=== PATIENT | female | born 1995 | race Caucasian/White ===

== ENCOUNTER 2017-12-19 20:27 | Emergency (ER) | payer MEDICAID, SELFPAY ==
[2017-12-19 20:28] VITALS: BP 128/78; PULSE 77; RESP 15; TEMP 36.5; O2SAT 98; BMI 20.9
--- NOTE | 2017-12-19 21:12 | ED.VIS.GEN ---
History of Present Illness Chief Complaint: Rash Informant: Patient Onset: Yesterday Context: Gradual Onset Timing: Continuous Quality: itchy Location: arms, abd Current Severity: Moderate Maximum Severity: Moderate Worsened by: n/a Relieved by: n/a Associated Symptoms: none Narrative: Patient states she was exposed to poison michelle and is very allergic to it, she washed herself off right afterwards, but started breaking out anyway. She states she was exposed to a yesterday and started breaking out yesterday. Prior similar symptoms: Yes Past Medical History - Allergies and Home Meds Allergies/Adverse Reactions: Allergies amoxicillin trihydrate [From Augmentin] Allergy (Verified 12/19/17 20:28) Hives Penicillins Allergy (Verified 12/19/17 20:28) Rash potassium clavulanate [From Augmentin] Allergy (Verified 12/19/17 20:28) Hives Primary Care Physician: Doctor,Your [STAFF PHYSICIAN] - As Needed Past Medical History: None Smoking Status: Never smoker Review of Systems General: Denies: Chills, Fever Musculoskeletal: Denies: Extremity Pain Skin: Reports: Rash. Denies: Abscess Physical Exam Vital Signs/Narrative: Vital Signs Temp Pulse Resp BP Pulse Ox 12/19/17 20:28 97.7 F L 77 15 128/78 H 98 Inital Vital Signs reviewed: Yes General: Well nourished, Well developed Head: Normocephalic, Atraumatic Extremities: Nontender, No edema Skin: Rash - Vesicular rash with calamine lotion on it, in linear distribution on her distal forearms and a small amount on her abdomen. Nontender. No edema. Neurological: Alert, Oriented x3, Cranial nerves II-XII grossly intact, Normal Strength, Normal Sensation Psychological: Normal affect Diagnostic/Tx/Re-eval - Medical Decision Making Consistent with poison michelle, however typically with a type IV hypersensitivity reaction people do not break out the same day that they were exposed. Therefore I question the possibility of this being a simple contact dermatitis from a different plant. The patient states that I am absolutely incorrect. I told her that regardless, topical steroids would be reasonable given its very limited distribution but she is very demanding that she is going to need systemic steroids. She understands the potential risks and side effects, and is okay with that, so she was given a prescription for a prednisone taper. ED Disposition - Plan for ED Patient: Disposition: Home or Assisted Living Chief Complaint: Rash Diagnosis: Rhus dermatitis Instructions: ED Dermatitis Poison Michelle Prescriptions: Prednisone 10 mg PO DAILY #63 tab Referrals: Doctor,Your [STAFF PHYSICIAN] - As Needed
[2017-12-19 21:19] VITALS: RESP 16
--- NOTE | 2017-12-19 21:19 | ED.RN ---
REVIEWED D/C INSTRUCTIONS, FOLLOW UP CARE, PRESCRIPTION, AND S/S THAT WOULD WARRANT A RETURN TO THE ED WITH PT. PT VERBALIZED AN UNDERSTANDING AND DENIES FURTHER QUESTIONS FOR THIS RN. PT SKIN P/W/D, RESP EVEN AND UNLABORED, PT A&O X 3, NO DISTRESS NOTED. PT AMBULATED OUT OF ED, GAIT STEADY.
== END 2017-12-19 21:21 | disposition home or self-care (01) ==
LOC: ED 21:16
PROVIDERS: Emergency Provider Emergency Medicine
DX: L23.7 Allergic contact dermatitis due to plants, except food (principal)
CPT/HCPCS: 99282

== ENCOUNTER 2018-05-19 17:25 | Emergency (ER) | payer MEDICAID, SELFPAY ==
[2018-05-19 17:26] VITALS: BP 95/68; PULSE 101; PULSE 102; RESP 17; RESP 18; TEMP 36.8; O2SAT 100; O2SAT 99; BMI 20.9
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
[2018-05-19] MEDS: 0.9% Normal Saline 1,000 ML 1000 ML IV (18:21)
[2018-05-19 18:58] VITALS: BP 115/62; PULSE 101; RESP 17; O2SAT 96
[2018-05-19 19:00] VITALS: BP 107/64; PULSE 99; RESP 14; O2SAT 94
[2018-05-19] MEDS: Ondansetron 4 MG/2 ML Vial IV (19:27)
[2018-05-19 20:05] VITALS: BP 112/71; PULSE 86; RESP 16; O2SAT 100
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
[2018-05-19 21:29] VITALS: BP 111/73; PULSE 87; RESP 16; O2SAT 99
== END 2018-05-19 21:30 | disposition home or self-care (01) ==
PROVIDERS: Emergency Provider Emergency Medicine
DX: S06.0X1A Concussion with loss of consciousness of 30 minutes or less, initial encounter (principal); S16.1XXA Strain of muscle, fascia and tendon at neck level, initial encounter; Y04.2XXA Assault by strike against or bumped into by another person, initial encounter; Y93.9 Activity, unspecified; Y92.89 Other specified places as the place of occurrence of the external cause; Y99.9 Unspecified external cause status
CPT/HCPCS: 70450; 72125; 96361; 96374; 99283; J7030; A4216; J2405

== ENCOUNTER 2018-06-14 14:35 | Emergency (ER) | payer MEDICAID, SELFPAY ==
[2018-06-14 14:36] VITALS: BP 123/67; PULSE 72; RESP 16; TEMP 36.3; O2SAT 98; BMI 21.6
--- NOTE | 2018-06-14 14:57 | ED.DCSUM_ITS ---
- ER Visit Summary Date of Service: 06/14/18 Chief Complaint: Facial redness History of Present Illness: The patient is a 23 F with facial redness after using a new makeup 3 days ago. No shortness of breath cough throat swelling or diffuse rash, her rash is on the face where she used makeup. Physical Examination: Otherwise normal exam there is slight erythema and irritation over the left face slightly on the right 2. Normal soft palate clear lungs bilaterally. Emergency Department Course and Treatment: This is likely a local irritation, I do not recommend any steroids at this time, I told the patient to use oil free moisturizers, otherwise this will heal on its own. There are no signs of superinfection at this time. Discharge stable condition Impression: [Facial irritation secondary to makeup] This note was generated with [employer] dictation software. It may contain incorrect words, spelling, and punctuation that were not noted in review of the chart prior to signing ED Disposition - Plan for ED Patient: Disposition: Home or Assisted Living Referrals: Care Physician,No Primary [Primary Care Provider] - 5-7 Days Additional Instructions: Use water-based moisturizer for the face, this should resolve on its own.
== END 2018-06-14 15:17 | disposition home or self-care (01) ==
LOC: ED 15:07
PROVIDERS: Emergency Provider Emergency Medicine
DX: L53.9 Erythematous condition, unspecified (principal)
CPT/HCPCS: 99282

== ENCOUNTER 2018-06-15 12:45 | Emergency (ER) | payer MEDICAID, SELFPAY ==
[2018-06-14 14:36] VITALS: BMI 21.6
[2018-06-15 12:46] VITALS: BP 115/71; PULSE 80; RESP 17; TEMP 36.8; O2SAT 98; BMI 21.6
--- NOTE | 2018-06-15 13:19 | ED.VISSUMM ---
- ER Visit Summary Date of Service: 06/15/18 Chief Complaint: Facial swelling History of Present Illness: The patient is a 23 F with facial swelling for the past few days after using a cup. She has no difficulty swallowing no change in her voice or difficulty breathing Physical Examination: She has diffuse facial swelling slightly worse than yesterday, she has a normal oropharynx normal soft palate no oropharyngeal edema. No lip swelling. Emergency Department Course and Treatment: Patient will be started on steroids, Solu-Medrol IV in the ED and prednisone for home. Disposition: Discharge stable condition Impression: Allergic dermatitis This note was generated with [employer] dictation software. It may contain incorrect words, spelling, and punctuation that were not noted in review of the chart prior to signing ED Disposition - Plan for ED Patient: Disposition: Home or Assisted Living Prescriptions: Prednisone 60 mg PO DAILY #15 tab Referrals: Care Physician,No Primary [Primary Care Provider] - 3-5 Days
[2018-06-15] MEDS: MethylPREDNISolone 125 MG/2 ML Vial IV (13:36)
[2018-06-15 13:50] VITALS: RESP 18
== END 2018-06-15 14:01 | disposition home or self-care (01) ==
PROVIDERS: Emergency Provider Emergency Medicine
DX: L30.9 Dermatitis, unspecified (principal)
CPT/HCPCS: 96374; 99282; A4216

== ENCOUNTER 2018-10-21 13:12 | Emergency (ER) | payer MEDICAID, SELFPAY ==
[2018-10-21 13:13] VITALS: BP 137/83; PULSE 69; RESP 18; TEMP 36.2; O2SAT 100; BMI 21.6
[2018-10-21 14:03] LABS: Color, Urine Yellow (Yellow); Glucose, Dipstick Normal (Normal); Ketone-Dipstick Negative (Negative); Leukocyte Esterase-Dipstick 25 /ul (Negative); Mucous, Urine 0 SEEN /hpf (<or=2+); Nitrite-Dipstick Negative (Negative); Occult Blood-Urine 10 /ul (Negative); Protein-Dipstick Negative (Negative); Red Blood Cells-Urine 0 SEEN /hpf (0-5); Urine Bilirubin Dipstick Negative (Negative); Urine Clarity Sl. Cloudy (Clear); Urine Urobilinogen Normal (Normal)
[2018-10-21 14:10] LABS: Bacteria RARE /hpf (None Seen); Squamous Epithelial Cells - UA 0-5 SEEN /hpf (5-10); White Blood Cells 0-5 SEEN /hpf (0-5)
--- NOTE | 2018-10-21 15:10 | ED.DCSUM_ITS ---
History of Present Illness Chief Complaint: Female C/O Informant: Patient, Family Onset: Yesterday Context: Sudden Onset Quality: Suprapubic pressure, frequency and discomfort Location: Current Severity: - - No symptoms unless she urinates Maximum Severity: Moderate Worsened by: Urination Relieved by: Nothing Associated Symptoms: No constitution or generalized symptoms Narrative: Patient is a 23-year-old female who presents with suprapubic disc comfort/pressure discomfort with urination urgency and frequency. She is not sexually active. She is never been . Last menses 2 weeks ago. She is never had a UTI. She denies vaginal bleeding or discharge. She believes her cervix is protruding. She will not allow me to perform a pelvic exam since I am a male physician. There are no female physicians on duty. Prior similar symptoms: No Recent Illness/Hospitalization: No - Past Medical History (1) No significant past medical history Status: Acute Past Medical History - Allergies and Home Meds Allergies/Adverse Reactions: Allergies amoxicillin trihydrate [From Augmentin] Allergy (Verified 10/21/18 13:15) Hives Penicillins Allergy (Verified 10/21/18 13:15) Rash potassium clavulanate [From Augmentin] Allergy (Verified 10/21/18 13:15) Hives Primary Care Physician: Care Physician,No Primary [Primary Care Provider] - Prior records reviewed: Yes Surgical History: no surgical history Lives: With Family Smoking Status: Never smoker Alcohol: None Review of Systems General: Denies: Chills, Fever, Sweats Respiratory: Denies: Dyspnea, Cough, Dyspnea on exertion Gastrointestinal: Reports: Abdominal pain. Denies: Nausea, Vomiting, Diarrhea, Melena, Hematochezia Genitourinary: Reports: Dysuria, Frequency. Denies: Hematuria Musculoskeletal: Denies: Myalgias, Arthralgias, Neck pain, Back pain, Swelling, Extremity Pain Skin: Denies: Rash, Wounds Neurological: Denies: Headache, Weakness, Numbness Physical Exam Vital Signs/Narrative: Vital Signs Temp Pulse Resp BP Pulse Ox 10/21/18 13:13 97.1 F L 69 18 137/83 H 100 Inital Vital Signs reviewed: Yes General: Well nourished, Well developed, No Acute Distress Head: Normocephalic, Atraumatic Eyes: Perrl, EOMI. Negative for: Pale conjunctiva, Scleral icterus ENT: Moist mucous membranes, No rhinorrhea, TM's clear Neck: Negative for: Supple, Nontender, No lymphadenopathy, No JVD, - Cardiovascular: Regular rate, Regular rhythm, No murmurs, Normal S1, Normal S2 Abdomen: Soft, Nondistended, Normal bowel sounds, No masses, Tender. Negative for: Nontender Back: Nontender, Normal Inspection. Negative for: CVA tenderness Skin: Normal color, No rash Neurological: Alert, Oriented x3, Cranial nerves II-XII grossly intact, Normal Strength, Normal Sensation Psychological: Normal affect Diagnostic/Tx/Re-eval Laboratory Results 10/21/18 13:55 Urine Color Yellow Urine Clarity Sl. Cloudy Urine pH 6.0 Ur Specific [place] 1.010 Urine Protein Negative Urine Glucose (UA) Normal Urine Ketones Negative Urine Occult Blood 10 H Urine Nitrite Negative Urine Bilirubin Negative Urine Urobilinogen Normal Ur Leukocyte Esterase 25 H Urine RBC 0 SEEN Urine WBC 0-5 SEEN Ur Squamous Epith Cells 0-5 SEEN Urine Bacteria RARE Urine Mucus 0 SEEN - Medical Decision Making Frequency and positive blood leukoesterase and bacteria will treat for UTI. No clinical evidence to suggest appendicitis, pyelonephritis or other cause. Patient was informed that her cervix is not protruding since she is not sexually active and never been . ED Disposition - Plan for ED Patient: Disposition: Home or Assisted Living Diagnosis: Acute cystitis Instructions: ED UTI Cystitis Female Prescriptions: Nitrofurantoin Macrocrystals [Macrobid] 100 mg PO Q12 #10 capsule Phenazopyridine HCl [Pyridium] 200 mg PO TID #10 tablet Referrals: Care Physician,No Primary [Primary Care Provider] - Additional Instructions: Your prescription was electronically transmitted to [facility]. Return if you have temperature greater than 100 and shaking chills. Recommend follow-up with your primary care physician. The name of your primary care physician is located on your insurance card.
[2018-10-21 15:50] VITALS: BP 115/60; PULSE 60; RESP 15; O2SAT 98
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
== END 2018-10-21 15:55 | disposition home or self-care (01) ==
PROVIDERS: Emergency Provider Emergency Medicine
DX: N30.00 Acute cystitis without hematuria (principal); Z88.0 Allergy status to penicillin
CPT/HCPCS: 81001; 99282

== ENCOUNTER 2018-11-05 13:24 | Emergency (ER) | payer MEDICAID, SELFPAY ==
[2018-11-05 13:24] VITALS: BP 115/78; PULSE 91; RESP 18; TEMP 36.9; O2SAT 97; BMI 20.9
--- NOTE | 2018-11-05 13:48 | CT_ITS ---
STUDY: CT BRAIN WITHOUT CONTRAST REASON FOR EXAM: Female, 23 years old. RADIATION DOSAGE (If Supplied By Facility): CTDIvol = ( 44.99 ) mGy, DLP = ( 745.49 ) mGycm TECHNIQUE: Transaxial CT imaging of the brain was performed without administration of intravenous contrast material. Individualized dose optimization techniques were used for this CT. COMPARISON: No relevant priors. FINDINGS: Normal soft tissue structures. Normal calvarium. Normal size ventricles and extra-axial spaces for the patient's age. Normal white matter tracts of the cerebral hemispheres. Normal basal ganglia and thalami. Normal brainstem. Normal cerebellum. There is no intracranial hemorrhage. There are no findings of an acute ischemic infarction. Normal visualized paranasal sinuses. CT/Brain/Head without Contrast IMPRESSION: Normal unenhanced CT scan of the brain. Electronically Signed: Aga Beck, at 14:19 EDT Tel , Service support ,
--- NOTE | 2018-11-05 13:48 | CT_ITS ---
STUDY: CT FACIAL BONES WITHOUT CONTRAST REASON FOR EXAM: Female, 23 years old. RADIATION DOSAGE (If Supplied By Facility): CTDIvol = ( 29.38 ) mGy, DLP = ( 503.38 ) mGycm TECHNIQUE: The patient was scanned in a multi detector CT scanner. Sagittal and coronal images were reconstructed. Individualized dose optimization techniques were used for this CT. COMPARISON: None. FINDINGS: Normal soft tissue structures. Normal orbital garcia and orbital contents. Normal nasal bones and anterior nasal spine. Normal facial bones. There is no demonstrated fracture. Normal visualized paranasal sinuses. CT/Sinus/Facial Bone IMPRESSION: Normal unenhanced CT of the facial bones. Electronically Signed: Aga Beck, at 14:22 EDT Tel , Service support ,
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
[2018-11-05] MEDS: Ondansetron ODT 4 MG Tablet PO (13:57)
[2018-11-05 16:00] VITALS: BP 111/69; PULSE 102; RESP 16; O2SAT 97
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
== END 2018-11-05 16:02 | disposition home or self-care (01) ==
PROVIDERS: Emergency Provider Emergency Medicine
DX: S06.0X0A Concussion without loss of consciousness, initial encounter (principal); Y04.2XXA Assault by strike against or bumped into by another person, initial encounter; Y93.9 Activity, unspecified; Y92.9 Unspecified place or not applicable; Y99.9 Unspecified external cause status
CPT/HCPCS: 70450; 70486; 99283

== ENCOUNTER 2019-10-28 04:40 | Emergency (ER) | payer MEDICAID, SELFPAY ==
--- NOTE | 2019-10-28 06:03 | ED.VISSUMM ---
- ER Visit Summary Date of Service: 10/28/19 Chief Complaint: Ring stuck on finger History of Present Illness: The patient is a 24 F presenting with ring stuck on finger. She states she has not been able to get her ring off for the past 30 minutes. She denies other complaints. Physical Examination: Vitals are stable. Patient is afebrile. Alert no acute distress. HEENT exam is unremarkable. Lungs are clear and equal bilaterally. Heart is regular rate and rhythm. Extremities metal ring on right ring finger. Normal cap refill. Skin is warm and dry. No focal neurologic deficit. Remainder of exam is unremarkable. Emergency Department Course and Treatment: Ring was removed using ring cutter. She has active full range of motion. Normal cap refill. She feels much improved. Advised to follow-up with primary care physician as needed. Advised return to ED for worsening complaints. Disposition: Discharge home Impression: Ring removal This note was generated with [employer] dictation software. It may contain incorrect words, spelling, and punctuation that were not noted in review of the chart prior to signing ED Disposition - Plan for ED Patient: Referrals: Care Physician,No Primary [Primary Care Provider] -
== END 2019-10-28 04:50 | disposition home or self-care (01) ==
LOC: ED 06:02
PROVIDERS: Emergency Provider Emergency Medicine
DX: S60.454A Superficial foreign body of right ring finger, initial encounter (principal); X58.XXXA Exposure to other specified factors, initial encounter; Y93.89 Activity, other specified; Y92.89 Other specified places as the place of occurrence of the external cause; Y99.8 Other external cause status
CPT/HCPCS: 99282

== ENCOUNTER 2020-08-12 16:09 | Emergency (ER) | payer MEDICAID, SELFPAY ==
[2020-08-12 16:10] VITALS: BP 125/71; PULSE 85; RESP 18; TEMP 36.4; O2SAT 99; BMI 22.1
--- NOTE | 2020-08-12 16:52 | RAD_ITS ---
STUDY: X-RAY - LEFT FOOT CLINICAL: Female, 25 years old. Injury/Pain TECHNIQUE: 3 view(s) of the foot. COMPARISON: None. FINDINGS: Normal talus, calcaneus, and tarsal bones. Normal visualized subtalar, talonavicular, calcaneocuboid, tarsal and tarsometatarsal articulations. Normal metatarsi. Normal metatarsophalangeal joint of the great toe. Normal tibial and fibular sesamoid bones. Normal interphalangeal joint of the great toe. Normal phalanges of the great toe. Normal second through fifth metatarsophalangeal joints. Normal interphalangeal joints and phalanges of the lesser toes. Soft tissue swelling of the first digit. There are cluster of punctate densities of the medial soft tissues at the level of the interphalangeal joint. RAD/Foot min 3 Views IMPRESSION: First toe soft tissue swelling. Medial first toe calcifications or foreign bodies. No destructive bony process. Electronically Signed: Keshav Beyer MD ([place]) at 17:13 EDT , Service support ,
[2020-08-12 16:59] VITALS: BP 125/71; PULSE 85; RESP 16; TEMP 36.4; O2SAT 99
[2020-08-12] MEDS: Naproxen 250 MG Tablet 500 MG PO (17:08)
[2020-08-12 17:09] VITALS: BP 125/71; PULSE 85; RESP 16; TEMP 36.4; O2SAT 99
[2020-08-12] MEDS: Diphth,Pertuss(Acell),Tet Vac 0.5 ML Vial IM (17:09)
[2020-08-12 17:14] LABS: Absolute Lymphocyte Count 2.28 X10^3/uL (0.83-4.51); Absolute Neutrophil Count 6.6 X10^3/uL (2.0-7.7); Basophil# 0.03 X10^3/uL; Basophil% 0.3 % (0-1); Hematocrit 41.4 % (37-47); Hemoglobin 13.2 g/dL (12.0-15.0); Lymphocyte # 2.28 X10^3/ul (4.0); Lymphocyte % 23.3 % (19-41); Mean Corp Hgb Conc 31.9 g/dL (32-36); Mean Corpuscular Hgb 29.8 pg (27.0-32.0); Mean Corpuscular Volume 93.5 fL (81-99); Mean Platelet Vol. 9.2 fl (6.2-12.0); Monocyte# 0.78 X10^3/uL; NRBC Flagged by Analyzer 0 % (0-5); Neutrophil # 6.58 X10^3/uL (2.7-7.7); Neutrophil % 67.2 % (47-70); Platelet Count 190 K/mm3 (150-450); RBC Distribution Width CV 11.9 % (11.6-14.6); RBC Distribution Width SD 40.9 fl (35.1-43.9); Red Blood Count 4.43 M/mm3 (4.2-5.4); White Blood Count 9.8 K/mm3 (4.4-11.0)
[2020-08-12 17:33] LABS: ALB/GLOB Ratio 1.1 RATIO (0.9-2.4); AST(SGOT) 7 U/L (15-37); Alanine Aminotransfer ALT/SGPT 21 U/L (13-56); Alkaline Phosphatase 91 U/L (45-117); Anion Gap 4 (5-15); BUN 13 mg/dL (7-18); BUN/Creat Ratio 17.5 RATIO (10-20); Chloride 106 mmol/L (98-107); Creatinine, Serum 0.74 mg/dL (0.55-1.02); EST Glomerular Filtration Rate 102 mL/min (>60); Est Glom Filt Rate - Afr Amer 123 mL/min (>60); Estimated Creatinine Clearance 109.74 ml/min; Globulin 3.6 g/dL (2.2-4.2); Glucose 75 mg/dL (74-106); Potassium 3.6 mmol/L (3.5-5.1); Protein, Total 7.6 g/dL (6.4-8.2); Sodium Level 138 mmol/L (136-145)
--- NOTE | 2020-08-12 17:41 | ED.DCSUM_ITS ---
- ER Visit Summary Date of Service: 08/12/20 Chief Complaint: Left foot redness and possible abscess History of Present Illness: The patient is a 25 F who presents with pain and swelling over her left foot there has been getting worse over the past 2 weeks. Patient states she cut her left great toe on a metal fence. Patient states she cleaned the area. Patient states she took 3 doses of doxycycline that she had left from a prior prescription. Patient states that initially started to get better and then over the past week and a half it started getting worse. Patient describes her pain is burning. Patient admits to some tingling over the left great toe. Patient states her pain is worse with movement. Patient is unsure of her last tetanus Physical Examination: Vital signs are stable. Patient is afebrile. Patient is in no acute distress. Skin is warm and dry. There is erythema and warmth over the dorsal aspect of the proximal phalanx of the left great toe and extending onto the dorsum of the foot. There is no fluctuance. There is no discharge or drainage. There is a healing wound over the dorsal aspect of the proximal phalanx of the left great toe. There is no abscess noted. Sensation was intact to light touch in all digits. Capillary refill was less than 2 seconds in all digits. Range of motion was limited in flexion and extension of the left great toe secondary to pain. Test Results: CBC and comprehensive metabolic profile were obtained and were within normal limits. X-rays of the left foot were obtained. There are 3 views. On my interpretation, there is soft tissue swelling. There is no fracture. There is no evidence of osteomyelitis. There are small foreign bodies versus calcifications on the lateral aspect of the left great toe. These are very small. Radiologist also interpreted the x-ray and agrees. Emergency Department Course and Treatment: Patient was given a dose of clindamycin here. Patient was given tetanus booster. Patient was given a prescription for doxycycline. Patient was instructed to keep the area clean. Patient was given a postop shoe. Patient was instructed to follow-up with her primary care physician in 5 to 7 days. Patient understood and was agreeable with the plan. All questions were answered. Disposition: Discharge home Impression: Cellulitis left foot This note was generated with [employer] dictation software. It may contain incorrect words, spelling, and punctuation that were not noted in review of the chart prior to signing ED Disposition - Plan for ED Patient: Disposition: Home or Assisted Living Diagnosis: Cellulitis of left foot Instructions: ED Cellulitis Prescriptions: Doxycycline 100 mg PO BID #20 capsule Transmission Status: Received by [facility] Referrals: Jason Barrientos III, MD [STAFF PHYSICIAN] - 5-7 Days
[2020-08-12 18:19] VITALS: BP 116/79; PULSE 78; RESP 16
== END 2020-08-12 18:22 | disposition home or self-care (01) ==
PROVIDERS: Emergency Provider Emergency Medicine
DX: L03.116 Cellulitis of left lower limb (principal); Z23 Encounter for immunization
CPT/HCPCS: 73630; 80053; 85025; 90715; 96365; 99284; A4216

== ENCOUNTER 2021-01-04 12:07 | Emergency (ER) | payer MEDICAID, SELFPAY ==
[2021-01-04 12:08] VITALS: BP 116/73; PULSE 77; RESP 18; TEMP 36.4; O2SAT 100; BMI 21.7
== END 2021-01-04 13:15 | disposition left against medical advice (07) ==
LOC: ED 13:22
DX: M25.512 Pain in left shoulder (principal)

== ENCOUNTER 2021-02-03 20:26 | Emergency (ER) | payer MEDICAID, SELFPAY ==
[2021-02-03 20:27] VITALS: BP 127/80; PULSE 89; RESP 16; TEMP 36.9; O2SAT 100; BMI 21.9
--- NOTE | 2021-02-03 20:36 | ED.RN ---
PT WAITING IN LOBBY FOR 6 MIN, STATES WAIT HAS BEEN TOO LONG, DOES NOT WANT TO BE SEEN AFTER ALL. PT OBSERVED LEAVING DEPT.
== END 2021-02-03 20:32 | disposition left against medical advice (07) ==
LOC: ED 22:44
DX: R51.9 Headache, unspecified (principal)

== ENCOUNTER 2021-08-19 19:20 | Emergency (ER) | payer MEDICAID, SELFPAY ==
[2021-08-19 19:21] VITALS: BP 130/85; PULSE 84; RESP 16; TEMP 36; O2SAT 98; BMI 21.7
--- NOTE | 2021-08-19 19:34 | EDS_ITS ---
HPI HPI - URI History of Present Illness Chief Complaint: Sore Throat Detail of Chief Complaint: Sore throat that started this morning Informant: patient Narrative Narrative: Patient presents with a sore throat that started this morning. She denies any fever. Patient states that several weeks ago her brother had strep and they live together. Patient also states she has a coworker that is sick at home with Covid and they have not had a recent interaction. She does also have a little bit of a cough that started this morning. She denies any shortness of breath. She denies difficulty swallowing. Patient states that work made her come in and get evaluated. ROS ROS ED Review of Systems ROS Unobtainable: other Constitutional Constitutional ED: Reports systems reviewed and no addt'l complaints, except as documented; Denies body ache(s), change in weight or chills Eyes Eyes: Denies acute decrease in peripheral vision, change in vision, double vision or loss of vision ENT ENT ED: Reports none and sore throat; Denies ear pain, lip swelling, loss taste/smell, neck pain or otalgia Cardiovascular Cardiovascular: Reports none; Denies abdominal pain, chest pain with activity, leg edema, lightheadedness, palpitations, rapid heart rate or syncope Respiratory/Chest Respiratory/Chest: Reports none and cough; Denies change in mental status, dry cough, dyspnea, hemoptysis, shortness of breath at rest or shortness of breath with exertion Gastrointestinal Gastrointestinal: Reports none; Denies abdominal pain, change in stool character, diarrhea, hematemesis, hematochezia, melena, rectal bleeding or vomiting Genitourinary Genitourinary ED: Reports none; Denies abdominal discomfort, anuria, dysuria, genital pain or polyuria Musculoskeletal Musculoskeletal: Reports none; Denies arthralgias, back pain, difficulty walking, extremity pain, muscle weakness or myalgias Integumentary Reports none; Denies abscess or rash Neurologic Neurologic: Reports none; Denies abnormal gait, confusion, focal weakness, frequent falls, headache(s), loss of vision, numbness, paresthesias, radicular pain, vertigo or weakness Psychiatric Psychiatric: Reports systems reviewed and no addt'l complaints, except as documented and none; Denies behavioral changes, confusion, difficulty concentrat ing, hallucinations, suicidal ideation, tactile hallucinations or visual hallucinations Endocrine Endocrinology: Denies none, cold intolerance, excessive sweating, fatigue or heat intolerance Hematologic/Lymphatic Hematologic/Lymphatic: Reports none; Denies anemia, easy bleeding or easy bruising Allergic/Immunologic Allergic/Immunologic ED: Denies as per HPI, none, lip swelling, mouth swelling, throat swelling, tongue swelling or hives PFSH PFSH Home Medications nitrofurantoin monohyd/m-cryst 100 mg PO Q12 #10 capsule 10/21/18 [Rx Last Taken Unknown] phenazopyridine [Pyridium] 200 mg PO TID #10 tab 10/21/18 [Rx Last Taken Unknown] doxycycline monohydrate 100 mg PO BID #20 capsule 08/12/20 [Rx Last Taken Unknown] Allergy/AdvReac Type Severity Reaction Status Date / Time amoxicillin trihydrate Allergy Hives Verified 02/03/21 20:28 [From Augmentin] Penicillins Allergy Rash Verified 02/03/21 20:28 potassium clavulanate Allergy Hives Verified 02/03/21 20:28 [From Augmentin] Social History (System 12/18/18 @ 15:25 by Iris Koch) Smoking Status: Current every day smoker tobacco type: cigarettes EXAM Physical Exam Const Vital Signs: 08/19/21 19:21 08/19/21 19:54 Temperature 96.8 F L Temperature Source Temporal Pulse Rate 84 Respiratory Rate 16 Respiratory Effort Normal Non-Labored Respiratory Pattern Normal Blood Pressure 130/85 H Blood Pressure Mean 100 Pulse Ox 98 Oxygen Delivery Method Room Air Positive well nourished and well developed General Appearance ED: well developed and NAD HEENT Reports TM's clear and moist mucous membranes HEENT Narrative: Mild pharyngeal erythema, tonsils are absent. Uvula midline without trismus. normocephalic and atraumatic; Negative for trauma or tenderness Tympanic Membrane ED: Yes TM's clear Eyes PERRL and EOMs intact bilaterally General Eye ED: Negative for pale conjunctiva or scleral icterus Neck no lymphadenopathy, supple and no JVD General: Negative for tenderness Chest Wall inspection of chest normal and palpation of chest normal Chest: Negative for tenderness Resp normal respiratory effort and clear to auscultation bilaterally Effort and Inspection: Negative for respiratory distress or pain with movement Auscultation: Negative for rhonchi, wheezes or diminished lung sounds Cardio regular rate, regular rhythm, S1 normal heart sound, S2 normal heart sound and no murmurs Peripheral Pulses: pulses 2+ throughout GI normal to inspection, nondistended, normoactive bowel sounds, soft to palpation, non-tender, non-distended and no masses Back/Spine no CVA tenderness and no thoracic nor lumbar tenderness Extremity normal to inspection General Extremety ED: Negative for edema General Extremity: Negative for edema Neuro oriented x3, CN's II-XII intact bilaterally, no sensory deficits noted and gait normal Sensorium / Orientation: awake, alert, oriented to person, oriented to place and oriented to time Motor Exam: strength 5/5 throughout and strength abnormal Psych mental status grossly normal Skin no rashes or lesions noted and no wounds MDM MDM MDM Narrative Medical decision making narrative: Patient had a rapid strep screen and a rapid COVID and both were negative. I suspect patient likely has a viral URI. Patient to use Motrin or Tylenol for discomfort. Patient did use salt water gargles. Patient to return if difficulty swallowing or condition should worsen anyway. Lab Data Attestation: I reviewed the patient's lab results. Discharge Plan Triage Chief Complaint: Sore Throat ED Provider: Meño Valdes Dx/Rx/DC Orders Clinical Impression: Viral URI, Viral pharyngitis Instructions: ED Pharyngitis, Viral, ED URI, Viral, No Abx (Adult) Prescriptions: No Action phenazopyridine [Pyridium] 200 MG tablet 200 mg PO TID Qty: 10 RF: 0 nitrofurantoin monohyd/m-cryst 100 MG capsule 100 mg PO Q12 Qty: 10 RF: 0 doxycycline monohydrate 100 MG capsule 100 mg PO BID Qty: 20 RF: 0 Primary Care Provider: Care Physician,No Primary Referrals: Néstor Buckner MD [NON-STAFF] - 3-5 Days Care Physician,No Primary [Primary Care Provider] - Disposition Disposition: Home, Self Care
== END 2021-08-19 20:23 | disposition home or self-care (01) ==
PROVIDERS: Emergency Provider Emergency Medicine; Visit Provider Emergency Medicine
DX: J06.9 Acute upper respiratory infection, unspecified (principal); B97.89 Other viral agents as the cause of diseases classified elsewhere; F17.210 Nicotine dependence, cigarettes, uncomplicated
CPT/HCPCS: 87811; 87880; 99282

== ENCOUNTER 2025-04-19 17:35 | Emergency (ER) | payer MEDICAID, SELFPAY ==
[2025-04-19 17:36] VITALS: BP 103/87; PULSE 90; RESP 22; TEMP 36.3; O2SAT 100; BMI 24.7
[2025-04-19] MEDS: Tetracaine 0.5% Ophthalmic Bottle 1 DRP OPHTHALMIC (18:03)
--- NOTE | 2025-04-19 18:10 | EX.ED.VIS.EY ---
HPI History of Present Illness Chief Complaint: Eye Problem Narrative Narrative: Patient is a 30-year-old female presenting to the emergency department for foreign body sensation in her left eye. She states that she was putting woodchips down in her garden this morning when she developed this sensation. She does not wear contacts, does wear glasses. States that she is having photophobia in her left eye and she is having a lot of watery discharge. States that she feels like she cannot keep her eye open due to pain. States that her tears are hurting my eye. PFSH PFSH Home Medications ?Medication ?Instructions ?Recorded ?Last Taken ?Type acetaminophen 500 mg tablet 500 mg PO Q6H PRN fever or pain 04/19/25 Unknown History (Tylenol Extra Strength) acetaminophen-pamabrom 500 mg-25 1 tab PO Q6H PRN menstrual pain 04/19/25 04/19/25 History mg tablet (Midol) diphenhydramine HCl 25 mg capsule 25 mg PO .COMPLEX 04/19/25 Unknown History (Benadryl) erythromycin 5 mg/gram (0.5 %) eye 1 applic LEFT EYE Q6H 5 days #3.5 04/19/25 Unknown Rx ointment grams melatonin 10 mg tablet 10 mg PO QHS 04/19/25 Unknown History [id number]-[id number]-[id number] 10 ml PO Q8H PRN COLD 04/19/25 Unknown History 5 mg-10 mg-325 mg-200mg/15 mL liq (Vicks DayQuil Severe Cold-Flu) Allergy/AdvReac Type Severity Reaction Status Date / Time amoxicillin trihydrate (From Allergy Hives Verified 04/19/25 17:37 Augmentin) Penicillins Allergy Rash Verified 04/19/25 17:37 potassium clavulanate (From Allergy Hives Verified 04/19/25 17:37 Augmentin) Social History Smoking Status: Never smoker ROS ROS ED ROS Narrative see HPI EXAM Physical Exam Narrative Exam Narrative: Vital signs: Reviewed General: Alert and oriented x 3. No acute distress HEENT: Head is normocephalic and atraumatic, sinuses nontender, pupils equal round and reactive. 2 mm bilaterally. Watery discharge from left eye. Normal conjunctiva, no injection or hemorrhage. No proptosis. Nares are patent. Oropharynx and throat exams normal. Neck: Supple without lymphadenopathy nontender Cardiovascular: Regular rate and rhythm, no murmurs. No rubs or gallops. Normal S1 and S2 Respiratory: Clear to auscultation bilaterally. No wheezes, rales, rhonchi Abdominal: Soft and nontender. Normal bowel sounds. No guarding or rebound. Nonsurgical abdomen Extremities: No tenderness. No bruising. Normal range of motion. Normal sensation. Skin: No rash or redness. The rest of the physical exam is unremarkable Const Vital Signs: 04/19/25 17:36 Temperature 97.4 F L Temperature Source Temporal Pulse Rate 90 Respiratory Rate 22 H Blood Pressure 103/87 H Blood Pressure Mean 92 Pulse Ox 100 Oxygen Delivery Method Room Air MDM MDM MDM Narrative Medical decision making narrative: Patient is a 30-year-old female presenting to the emergency department for left eye irritation. Patient was seen and examined. Vitals are stable. Patient resting bed comfortably no acute distress. Differential includes but is not limited to: Eye foreign body, corneal abrasion Patient does not wear contacts, she wears glasses and does not have them here with her. Visual acuity can be seen in the nursing notes. Patient states that her vision is poor without glasses. Unchanged from baseline. Tetracaine and fluorescein staining of the left eye was completed. There is evidence of a corneal abrasion at the 10 o'clock position in her left eye. Lids were everted and there is no evidence of foreign body. Discussed treatment with the patient with erythromycin ointment. Patient agreeable with plan. Given ophthalmology follow-up. Patient discharged from the Emergency Department. I do not feel that the patient's evaluation reveals any acute reason for admission at this time. I instructed them to either follow-up with their primary care physician or promptly return to the Emergency Department for reevaluation should symptoms worsen or new symptoms develop. I explained what symptoms would indicate the need to return to the emergency department. Shared decision making was used. The patient voiced understanding of the treatment plan and is agreeable with it. Clinical impression: Corneal abrasion History & Record Review Discussion w/independent historian: Patient and Family Discharge Plan Triage Chief Complaint: Eye Problem ED Provider: Gertrude Mohamud Dx/Rx/DC Orders Clinical Impression: Abrasion, corneal Instructions: ED Corneal Abrasion Prescriptions: New erythromycin 5 mg/gram (0.5 %) ointment 1 applic LEFT EYE Q6H 5 Days Qty: 3.5 0RF No Action melatonin 10 mg tablet 10 mg PO QHS diphenhydramine HCl [Benadryl] 25 mg capsule 25 mg PO .COMPLEX Rx Instructions: 25 mg orally WEEKLY; acetaminophen [Tylenol Extra Strength] 500 mg tablet 500 mg PO Q6H PRN (Reason: fever or pain) Vicks DayQuil Severe Cold-Flu 1-96-452-200 mg/15 mL liquid 10 ml PO Q8H PRN (Reason: COLD) Midol 500-25 mg tablet 1 tab PO Q6H PRN (Reason: menstrual pain) Primary Care Provider: Care Physician,No Primary Referrals: Man Britton MD [Med Staff - Active Staff, Surgery] - As soon as possible Care Physician,No Primary [Primary Care Provider, Medical] Activity Restrictions/Additional Instructions: Apply the erythromycin every 6 hours for the next 5 days. Follow-up with the eye doctor as soon as possible I provided you with. Your evaluation in the Emergency Department did not reveal any acute reason for admission. However, I want to emphasize that you may be early in the course of a disease process or illness even if it is not present. For this reason you should follow-up within 24 hours for reevaluation with either your primary care physician or if necessary back here in the Emergency Department. You should return to the Emergency Department immediately if your symptoms worsen or new symptoms develop. Print Language: Setswana Disposition Disposition: Home, Self Care Discharge Date/Time: 04/19/25 19:24
[2025-04-19 19:23] VITALS: BP 103/87; PULSE 90; RESP 22; TEMP 36.3; O2SAT 100
== END 2025-04-19 19:24 | disposition home or self-care (01) ==
PROVIDERS: Emergency Provider Student in an Organized Health Care Education/Training Program; Visit Provider Student in an Organized Health Care Education/Training Program
DX: S05.02XA Injury of conjunctiva and corneal abrasion without foreign body, left eye, initial encounter (principal); W26.8XXA Contact with other sharp object(s), not elsewhere classified, initial encounter
CPT/HCPCS: 99283